=== PATIENT | female | born 1940 | race Two or more races ===

== ENCOUNTER 2020-05-31 07:00 | Day surgery (SDC) | payer OTHER ==
[~2020-05-31] VITALS: Ht 154.9 cm; Wt 71.2 kg
[~2020-05-31 07:00] MED LIST: LEVOTHYROXINE25 MCG PO; LOSARTAN POTAS100 MG PO; TOPROL XL200 MG PO
== END 2020-06-01 07:00 | disposition home or self-care (01) ==
LOC: CIR.AMB 07:00 → O/R 13:55 → SURH 13:55 → CIR.AMB 06-01 07:00 → SURH 06-01 10:42 → O/R 06-01 10:42
PROVIDERS: ATTEND Specialist
DX: C50.411 Malignant neoplasm of upper-outer quadrant of right female breast (principal)

== ENCOUNTER 2020-07-13 08:36 | Outpatient (CLI) | payer OTHER | END 2020-07-13 08:41 | disposition home or self-care (01) | LOC: NUCLEAR 08:36 | PROVIDERS: ATTEND Internal Medicine Hematology & Oncology | DX: C50.411 Malignant neoplasm of upper-outer quadrant of right female breast (principal) | CPT/HCPCS: 78816; A9552 ==